=== PATIENT | male | born 1975 | race Caucasian/White ===

== ENCOUNTER 2020-08-01 06:50 | Inpatient (IN) | payer OTHER ==
[~2020-08-01] VITALS: Ht 182.9 cm; Wt 116.0 kg
[2020-08-01 07:27] LABS: COVID AG,FIA SOURCE NASAL SWAB
[2020-08-01 07:30] LABS: BASOPHILS % (AUTO) 0.4 % (0.0-2.0); EOSINOPHILS % (AUTO) 0.6 % (1.0-6.0); HEMATOCRIT 36.3 % (41-53); HEMOGLOBIN 11.5 g/dL (13.5-17.5); LYMPHOCYTES # (AUTO) 1.5 K/uL (1.0-4.8); LYMPHOCYTES % (AUTO) 21.3 % (22.0-44.0); MEAN CORPUSCULAR HEMOGLOBIN 23.9 pg (26.0-34.0); MEAN CORPUSCULAR HGB CONC 31.7 G/dL (31.0-37.0); MEAN CORPUSCULAR VOLUME 75 fL (80-100); MONOCYTES # (AUTO) 0.6 K/uL (0.1-1.0); NEUTROPHILS # (AUTO) 4.8 K/uL (1.8-7.7); NEUTROPHILS % (AUTO) 68.7 % (40.0-70.0); PLATELET COUNT (AUTO) 283 K/uL (150-450); RED BLOOD CELL COUNT(AUTO) 4.81 MIL/uL (4.50-5.90); RED CELL DISTRIBUTION WIDTH 19.4 % (11.5-14.5)
[2020-08-01 07:41] LABS: ANION GAP 6 mmol/L (8-16); CALCIUM, TOTAL 8.8 mg/dL (8.8-10.5); CARBON DIOXIDE 29 mmol/L (22-29); CHLORIDE 100 mmol/L (98-107); CREATININE 0.89 mg/dL (0.60-1.30); GLOMERULAR FILTR. RATE CALC > 60 mL/min (>60); GLUCOSE,RANDOM 110 mg/dL (70-110); POTASSIUM 3.7 mmol/L (3.5-5.1); SODIUM SERUM 135 mmol/L (136-145); UREA NITROGEN, BLOOD 8 mg/dL (7-18)
[2020-08-01] MEDS ORDERED: METH10SO PO (07:42)
[2020-08-01 07:46] LABS: SALICYLATE 2.3 mg/dL (2.8-20.0)
[2020-08-01 07:47] LABS: ACETAMINOPHEN < 2 mcg/mL (10-30); ALANINE AMINOTRANSFERASE 16 U/L (12-78); ALBUMIN 3.4 g/dL (3.4-5.0); ALKALINE PHOSPHATASE 78 U/L (46-116); ASPARTATE AMINOTRANSFERASE 18 U/L (15-37); BILIRUBIN,TOTAL 0.3 mg/dL (0.1-1.0); CREATINE KINASE, TOTAL ONLY 52 U/L (39-308); TOTAL PROTEIN, SERUM 8.5 g/dL (6.4-8.2)
[2020-08-01] MEDS ORDERED: LORazepam 2 MG/ML VIAL IVP ONE (09:15)
[2020-08-01] MEDS ORDERED: MAGNESIUM HYDROXIDE SUSPENSION 30 ML UDCUP PO PRN (10:00)
[2020-08-01] MEDS ORDERED: ACETAMINOPHEN 325 MG TABLET PO PRN (10:00)
[2020-08-01] MEDS ORDERED: SODIUM CHLORIDE 0.9% 1,000 ML IV ONE (10:00)
[2020-08-01] MEDS ORDERED: ONDANSETRON HCL 4 MG/2 ML VIAL IVP PRN ×2 (10:00)
[2020-08-01] MEDS ORDERED: 0.9% SODIUM CHLORIDE 10 ML SYRINGE IVP PRN (10:00)
[2020-08-01] MEDS: METHADONE HCL 10 MG TABLET PO SCH (10:16)
[2020-08-01 12:13] LABS: AMPHET/METH SCREEN,URINE POSITIVE (NEGATIVE); BARBITURATE SCREEN, URINE NEGATIVE (NEGATIVE); BENZODIAZEPINES SCREEN,URINE NEGATIVE (NEGATIVE); CANNABINOID SCREEN,URINE NEGATIVE (NEGATIVE); COCAINE SCREEN,URINE NEGATIVE (NEGATIVE); METHADONE SCREEN, URINE POSITIVE (NEGATIVE); OPIATE SCREEN,URINE NEGATIVE (NEGATIVE); PHENCYCLIDINE SCREEN,URINE NEGATIVE (NEGATIVE)
[2020-08-01 12:49] VITALS: BP 143/91
[2020-08-01] MEDS: NICOTINE 21 MG/24 HOUR PATCH TD SCH (14:20)
[2020-08-01 15:09] VITALS: BP 138/82
[2020-08-01 19:35] VITALS: BP 141/87
[2020-08-01] MEDS: ACETAMINOPHEN 325 MG TABLET PO PRN (20:06)
[2020-08-01 23:55] VITALS: BP 136/82
[2020-08-02] MEDS: LORazepam 2 MG/ML VIAL IVP PRN ×2 (00:48→17:17)
[2020-08-02 04:38] VITALS: BP 147/89
[2020-08-02 07:40] VITALS: BP 124/79
[2020-08-02] MEDS: FAMOTIDINE 20 MG TABLET PO SCH (07:53)
[2020-08-02] MEDS: MULTIVITAMINS WITH MINERALS, THERAPEUTIC TABLET PO SCH (07:53)
[2020-08-02] MEDS: NICOTINE 21 MG/24 HOUR PATCH TD SCH (07:54)
[2020-08-02] MEDS: METHADONE HCL 10 MG TABLET PO SCH (07:54)
[2020-08-02] MEDS: LevETIRAcetam 500 MG TABLET PO SCH ×2 (09:35→20:50)
[2020-08-02 11:10] VITALS: BP 145/93
[2020-08-02 13:39] VITALS: BP 128/72
[2020-08-02 20:18] VITALS: BP 123/75
[2020-08-03] MEDS: LORazepam 2 MG/ML VIAL IVP PRN ×4 (03:46→20:25)
[2020-08-03] MEDS: ACETAMINOPHEN 325 MG TABLET PO PRN (03:56)
[2020-08-03 05:17] VITALS: BP 141/99
[2020-08-03 07:32] VITALS: BP 140/83
[2020-08-03] MEDS: MULTIVITAMINS WITH MINERALS, THERAPEUTIC TABLET PO SCH (08:03)
[2020-08-03] MEDS: FAMOTIDINE 20 MG TABLET PO SCH (08:03)
[2020-08-03] MEDS: METHADONE HCL 10 MG TABLET PO SCH (08:03)
[2020-08-03] MEDS: LevETIRAcetam 500 MG TABLET PO SCH (08:03)
[2020-08-03] MEDS: NICOTINE 21 MG/24 HOUR PATCH TD SCH (08:04)
[2020-08-03 20:08] VITALS: BP 110/65
[2020-08-03] MEDS: LevETIRAcetam 250 MG TABLET PO SCH (20:22)
[2020-08-03 23:37] VITALS: BP 112/66
[2020-08-04 04:34] VITALS: BP 131/79
[2020-08-04] MEDS: LORazepam 2 MG/ML VIAL IVP PRN ×3 (06:03→20:40)
[2020-08-04 07:50] VITALS: BP 142/80
[2020-08-04] MEDS: FAMOTIDINE 20 MG TABLET PO SCH (08:41)
[2020-08-04] MEDS: METHADONE HCL 10 MG TABLET PO SCH (08:41)
[2020-08-04] MEDS: MULTIVITAMINS WITH MINERALS, THERAPEUTIC TABLET PO SCH (08:41)
[2020-08-04] MEDS: LevETIRAcetam 250 MG TABLET PO SCH ×2 (08:42→20:39)
[2020-08-04] MEDS: NICOTINE 21 MG/24 HOUR PATCH TD SCH (08:42)
[2020-08-04 10:59] VITALS: BP 138/82
[2020-08-04 15:09] VITALS: BP 112/84
[2020-08-04 19:48] VITALS: BP 105/68
[2020-08-05 04:29] VITALS: BP 99/67
[2020-08-05] MEDS: FAMOTIDINE 20 MG TABLET PO SCH (07:55)
[2020-08-05] MEDS: LevETIRAcetam 250 MG TABLET PO SCH ×2 (07:55→21:45)
[2020-08-05] MEDS: METHADONE HCL 10 MG TABLET PO SCH ×2 (07:55→09:04)
[2020-08-05] MEDS: MULTIVITAMINS WITH MINERALS, THERAPEUTIC TABLET PO SCH (07:55)
[2020-08-05] MEDS: NICOTINE 21 MG/24 HOUR PATCH TD SCH (07:56)
[2020-08-05 08:20] VITALS: BP 113/58
[2020-08-05] MEDS ORDERED: LORazepam 2 MG/ML VIAL IVP PRN (10:00)
[2020-08-05 19:00] VITALS: BP 117/64
[2020-08-05] MEDS ORDERED: LevETIRAcetam 500 MG in DEXTROSE 5%-WATER 100 ML IV ONE (19:30)
[2020-08-05] MEDS ORDERED: SODIUM CHLORIDE 0.9% 250 ML IV ONE (19:37)
[2020-08-05 20:08] VITALS: BP 105/63
[2020-08-05] MEDS: LORazepam 2 MG/ML VIAL IVP PRN (20:49)
[2020-08-05] MEDS: MELATONIN 3 MG TABLET PO PRN (21:46)
[2020-08-06] MEDS ORDERED: LORazepam 2 MG/ML VIAL IVP ONE (01:45)
[2020-08-06 04:55] VITALS: BP 98/75
[2020-08-06 07:36] VITALS: BP 127/70
[2020-08-06] MEDS: FAMOTIDINE 20 MG TABLET PO SCH (08:05)
[2020-08-06] MEDS: MULTIVITAMINS WITH MINERALS, THERAPEUTIC TABLET PO SCH (08:05)
[2020-08-06] MEDS: LevETIRAcetam 250 MG TABLET PO SCH (08:05)
[2020-08-06] MEDS: METHADONE HCL 10 MG TABLET PO SCH (08:05)
[2020-08-06] MEDS: NICOTINE 21 MG/24 HOUR PATCH TD SCH (08:06)
[2020-08-06] MEDS: LORazepam 2 MG/ML VIAL IVP PRN ×2 (14:09→21:09)
[2020-08-06 14:24] VITALS: BP 103/73
[2020-08-06] MEDS: LevETIRAcetam 500 MG TABLET PO SCH (20:05)
[2020-08-06] MEDS: MELATONIN 3 MG TABLET PO PRN (20:05)
[2020-08-06 20:46] VITALS: BP 99/72
[2020-08-07 00:35] VITALS: BP 86/54
[2020-08-07 05:31] VITALS: BP 84/60
[2020-08-07 08:00] VITALS: BP 107/56
[2020-08-07] MEDS: MULTIVITAMINS WITH MINERALS, THERAPEUTIC TABLET PO SCH (08:38)
[2020-08-07] MEDS: FAMOTIDINE 20 MG TABLET PO SCH (08:38)
[2020-08-07] MEDS: METHADONE HCL 10 MG TABLET PO SCH (08:38)
[2020-08-07] MEDS: LevETIRAcetam 500 MG TABLET PO SCH ×2 (08:38→19:42)
[2020-08-07] MEDS: NICOTINE 21 MG/24 HOUR PATCH TD SCH (08:39)
[2020-08-07] MEDS: LORazepam 2 MG/ML VIAL IVP PRN ×2 (12:37→19:42)
[2020-08-07 19:20] VITALS: BP 93/52
[2020-08-07] MEDS: GABAPENTIN 300 MG CAPSULE PO SCH (19:42)
[2020-08-07] MEDS: MELATONIN 3 MG TABLET PO PRN (21:23)
[2020-08-08] MEDS: LORazepam 2 MG/ML VIAL IVP PRN ×3 (01:17→20:27)
[2020-08-08 04:50] VITALS: BP 95/60
[2020-08-08 08:05] VITALS: BP 105/61
[2020-08-08] MEDS: FAMOTIDINE 20 MG TABLET PO SCH (08:41)
[2020-08-08] MEDS: LevETIRAcetam 500 MG TABLET PO SCH ×2 (08:41→20:21)
[2020-08-08] MEDS: NICOTINE 21 MG/24 HOUR PATCH TD SCH (08:41)
[2020-08-08] MEDS: MULTIVITAMINS WITH MINERALS, THERAPEUTIC TABLET PO SCH (08:41)
[2020-08-08] MEDS ORDERED: METHADONE HCL 10 MG TABLET PO ONE (09:00)
[2020-08-08] MEDS ORDERED: METHADONE HCL 10 MG TABLET PO SCH (09:00)
[2020-08-08 19:50] VITALS: BP 100/62
[2020-08-08] MEDS: GABAPENTIN 300 MG CAPSULE PO SCH (20:21)
[2020-08-08] MEDS: MELATONIN 3 MG TABLET PO PRN (21:28)
[2020-08-09 03:58] VITALS: BP 112/69
[2020-08-09] MEDS: NICOTINE 21 MG/24 HOUR PATCH TD SCH (08:13)
[2020-08-09] MEDS: LevETIRAcetam 500 MG TABLET PO SCH ×2 (08:14→20:27)
[2020-08-09] MEDS: FAMOTIDINE 20 MG TABLET PO SCH (08:14)
[2020-08-09] MEDS: MULTIVITAMINS WITH MINERALS, THERAPEUTIC TABLET PO SCH (08:14)
[2020-08-09 08:17] VITALS: BP 103/53
[2020-08-09] MEDS ORDERED: METHADONE HCL 10 MG TABLET PO ONE (09:00)
[2020-08-09 16:09] LABS: BASOPHILS % (AUTO) 0.9 % (0.0-2.0); LYMPHOCYTES # (AUTO) 2.1 K/uL (1.0-4.8); RED CELL DISTRIBUTION WIDTH 20.1 % (11.5-14.5)
[2020-08-09 16:12] LABS: HEMATOCRIT 41.9 % (41-53); HEMOGLOBIN 13.5 g/dL (13.5-17.5); MEAN CORPUSCULAR HEMOGLOBIN 24.3 pg (26.0-34.0); MEAN CORPUSCULAR HGB CONC 32.2 G/dL (31.0-37.0); MEAN CORPUSCULAR VOLUME 76 fL (80-100); MONOCYTES % (AUTO) 11.4 % (2.0-9.0); NEUTROPHILS # (AUTO) 5.8 K/uL (1.8-7.7); NEUTROPHILS % (AUTO) 63.7 % (40.0-70.0); RED BLOOD CELL COUNT(AUTO) 5.56 MIL/uL (4.50-5.90)
[2020-08-09] MEDS ORDERED: LORazepam 0.5 MG TABLET PO ONE (16:15)
[2020-08-09 16:21] LABS: ANION GAP 8 mmol/L (8-16); CALCIUM, TOTAL 9.6 mg/dL (8.8-10.5); CARBON DIOXIDE 25 mmol/L (22-29); CHLORIDE 101 mmol/L (98-107); CREATININE 1.05 mg/dL (0.60-1.30); GLOMERULAR FILTR. RATE CALC > 60 mL/min (>60); GLUCOSE,RANDOM 94 mg/dL (70-110); POTASSIUM 4.4 mmol/L (3.5-5.1); SODIUM SERUM 134 mmol/L (136-145); UREA NITROGEN, BLOOD 10 mg/dL (7-18)
[2020-08-09 16:26] LABS: ALANINE AMINOTRANSFERASE 16 U/L (12-78); ALBUMIN 3.8 g/dL (3.4-5.0); ALKALINE PHOSPHATASE 85 U/L (46-116); ASPARTATE AMINOTRANSFERASE 22 U/L (15-37); BILIRUBIN,TOTAL 0.3 mg/dL (0.1-1.0); TOTAL PROTEIN, SERUM 8.8 g/dL (6.4-8.2)
[2020-08-09] MEDS: CloNIDine HCL 0.1 MG TABLET PO SCH ×2 (16:44→20:26)
[2020-08-09 16:55] LABS: PLATELET COUNT (AUTO) 242 K/uL (150-450)
[2020-08-09 20:00] VITALS: BP 103/78
[2020-08-09] MEDS: GABAPENTIN 300 MG CAPSULE PO SCH (20:26)
[2020-08-09] MEDS: MELATONIN 3 MG TABLET PO PRN (20:44)
[2020-08-10 05:00] VITALS: BP 109/66
[2020-08-10] MEDS: CloNIDine HCL 0.1 MG TABLET PO SCH ×4 (05:50→20:35)
[2020-08-10 08:07] VITALS: BP 115/64
[2020-08-10] MEDS: FAMOTIDINE 20 MG TABLET PO SCH (09:20)
[2020-08-10] MEDS: LevETIRAcetam 500 MG TABLET PO SCH ×2 (09:20→20:35)
[2020-08-10] MEDS: MULTIVITAMINS WITH MINERALS, THERAPEUTIC TABLET PO SCH (09:20)
[2020-08-10] MEDS: NICOTINE 21 MG/24 HOUR PATCH TD SCH (09:21)
[2020-08-10] MEDS ORDERED: HydrOXYzine HCL 50 MG TABLET PO PRN (15:00)
[2020-08-10] MEDS: HEPARIN SODIUM,PORCINE 5,000 UNITS/ML VIAL SQ SCH ×2 (16:52→20:35)
[2020-08-10] MEDS ORDERED: METHADONE HCL 10 MG TABLET PO ONE (18:15)
[2020-08-10 19:25] VITALS: BP 108/59
[2020-08-10] MEDS: GABAPENTIN 300 MG CAPSULE PO SCH (20:35)
[2020-08-10] MEDS: MELATONIN 3 MG TABLET PO PRN (20:35)
[2020-08-11 04:00] VITALS: BP 110/69
[2020-08-11] MEDS: CloNIDine HCL 0.1 MG TABLET PO SCH ×2 (06:05→11:55)
[2020-08-11 08:00] VITALS: BP 108/59
[2020-08-11] MEDS: LevETIRAcetam 500 MG TABLET PO SCH (08:27)
[2020-08-11] MEDS: HEPARIN SODIUM,PORCINE 5,000 UNITS/ML VIAL SQ SCH (08:27)
[2020-08-11] MEDS: NICOTINE 21 MG/24 HOUR PATCH TD SCH (08:27)
[2020-08-11] MEDS: FAMOTIDINE 20 MG TABLET PO SCH (08:27)
[2020-08-11] MEDS: MULTIVITAMINS WITH MINERALS, THERAPEUTIC TABLET PO SCH (08:27)
[2020-08-11 11:52] VITALS: BP 99/64
[2020-08-11] MEDS ORDERED: CLON0.1T2 PO ×2 (12:06→12:20)
[2020-08-11] MEDS ORDERED: GABA-1181 PO (12:15)
[2020-08-11] MEDS ORDERED: LEVE500T8 PO (12:19)
[2020-08-11] MEDS ORDERED: MULT-1239 PO (12:22)
== END 2020-08-11 13:15 | DRG 101 ==
LOC: EMS 06:54 → 5S 10:33 → 6S 08-02 13:15
PROVIDERS: ADMIT Internal Medicine; ATTEND Internal Medicine
PROC: 4A10X4Z Monitoring of Central Nervous Electrical Activity, External Approach (ICD-10-PCS; principal; 2020-08-03)
DX: G40.909 Epilepsy, unspecified, not intractable, without status epilepticus (principal); F19.239 Other psychoactive substance dependence with withdrawal, unspecified; G25.81 Restless legs syndrome; D64.9 Anemia, unspecified; E66.9 Obesity, unspecified; F17.210 Nicotine dependence, cigarettes, uncomplicated; F11.90 Opioid use, unspecified, uncomplicated; I87.2 Venous insufficiency (chronic) (peripheral); Z20.822 Contact with and (suspected) exposure to COVID-19; Z88.1 Allergy status to other antibiotic agents; Z79.899 Other long term (current) drug therapy; Z71.51 Drug abuse counseling and surveillance of drug abuser; Z68.34 Body mass index [BMI] 34.0-34.9, adult
CPT/HCPCS: 70450; 70551; 71045; 80053; 82550; 84484; 85025; 93005; 95816; 99285; G0480; G0481; J0712; J1644; J2060; J2405; J7030; J7050; J7060; 36415-L1; 36415-TC

== ENCOUNTER 2020-09-09 09:37 | Inpatient (IN) | payer OTHER ==
[~2020-09-09] VITALS: Ht 185.4 cm; Wt 129.0 kg
[~2020-09-09 09:37] MED LIST: CLON0.1T2 PO; GABA-1181 PO; LEVE500T8 PO; MULT-1239 PO
[2020-09-09] MEDS ORDERED: ONDANSETRON HCL 4 MG/2 ML VIAL IVP ONE (11:00)
[2020-09-09] MEDS ORDERED: ASPIRIN 325 MG TABLET PO ONE (11:00)
[2020-09-09] MEDS ORDERED: SODIUM CHLORIDE 0.9% 1,000 ML IV ONE (11:00)
[2020-09-09] MEDS ORDERED: KETOROLAC TROMETHAMINE 30 MG/ML VIAL IVP ONE (11:00)
[2020-09-09] MEDS ORDERED: MAGNESIUM HYDROXIDE SUSPENSION 30 ML UDCUP PO PRN (11:00)
[2020-09-09 11:26] LABS: COVID AG,FIA SOURCE NASOPHARYNGEAL
[2020-09-09 11:30] LABS: BASOPHILS % (AUTO) 0.5 % (0.0-2.0); EOSINOPHILS % (AUTO) 0.1 % (1.0-6.0); HEMATOCRIT 38.5 % (41-53); HEMOGLOBIN 12.3 g/dL (13.5-17.5); LYMPHOCYTES # (AUTO) 1.5 K/uL (1.0-4.8); LYMPHOCYTES % (AUTO) 15.4 % (22.0-44.0); MEAN CORPUSCULAR HEMOGLOBIN 24.8 pg (26.0-34.0); MEAN CORPUSCULAR HGB CONC 32.1 G/dL (31.0-37.0); MEAN CORPUSCULAR VOLUME 78 fL (80-100); MONOCYTES # (AUTO) 0.8 K/uL (0.1-1.0); MONOCYTES % (AUTO) 8.9 % (2.0-9.0); NEUTROPHILS # (AUTO) 7.2 K/uL (1.8-7.7); NEUTROPHILS % (AUTO) 75.1 % (40.0-70.0); PLATELET COUNT (AUTO) 257 K/uL (150-450); RED BLOOD CELL COUNT(AUTO) 4.97 MIL/uL (4.50-5.90); RED CELL DISTRIBUTION WIDTH 18.6 % (11.5-14.5)
[2020-09-09 11:44] LABS: D-DIMER 0.41 mg/L FEU (0.00-0.50); INR 1.1 (0.9-1.1); PROTHROMBIN TIME 11.3 SEC (9.4-11.6)
[2020-09-09 11:45] LABS: ANION GAP 9 mmol/L (8-16); CARBON DIOXIDE 26 mmol/L (22-29); CHLORIDE 105 mmol/L (98-107); CREATININE 0.93 mg/dL (0.60-1.30); GLOMERULAR FILTR. RATE CALC > 60 mL/min (>60); GLUCOSE,RANDOM 112 mg/dL (70-110); POTASSIUM 3.4 mmol/L (3.5-5.1); SODIUM SERUM 140 mmol/L (136-145); UREA NITROGEN, BLOOD 11 mg/dL (7-18)
[2020-09-09 11:48] LABS: ALANINE AMINOTRANSFERASE 16 U/L (12-78); ALBUMIN 3.4 g/dL (3.4-5.0); ALKALINE PHOSPHATASE 79 U/L (46-116); ASPARTATE AMINOTRANSFERASE 14 U/L (15-37); BILIRUBIN,TOTAL 0.4 mg/dL (0.1-1.0); CREATINE KINASE, TOTAL ONLY 55 U/L (39-308); LIPASE 167 U/L (73-393)
[2020-09-09 11:50] LABS: LACTIC ACID 1.2 mmol/L (0.4-2.0)
[2020-09-09 11:57] LABS: B-TYPE NATRIURETIC PEPTIDE 8 pg/mL (0-100)
[2020-09-09] MEDS ORDERED: ZOLPIDEM TARTRATE 5 MG TABLET PO PRN (12:30)
[2020-09-09] MEDS: ACETAMINOPHEN 325 MG TABLET PO PRN (17:45)
[2020-09-09 21:30] VITALS: BP 129/87
[2020-09-09] MEDS: LevETIRAcetam 500 MG TABLET PO SCH (21:49)
[2020-09-10 00:12] VITALS: BP 131/71
[2020-09-10 03:40] VITALS: BP 130/76
[2020-09-10] MEDS: ACETAMINOPHEN 325 MG TABLET PO PRN (04:37)
[2020-09-10 07:47] VITALS: BP 125/73
[2020-09-10] MEDS: LevETIRAcetam 500 MG TABLET PO SCH (08:18)
[2020-09-10] MEDS ORDERED: FAMOTIDINE 20 MG TABLET PO SCH (09:00)
[2020-09-10] MEDS ORDERED: ASPIRIN 81 MG CHEWABLE TABLET PO SCH (09:00)
[2020-09-10 11:04] VITALS: BP 131/75
[2020-09-10] MEDS ORDERED: ASPI-1450 PO (11:07)
[2020-09-10] MEDS ORDERED: ACET-2247 PO (11:08)
[2020-09-10] MEDS ORDERED: MOM30 PO (11:08)
[2020-09-10] MEDS ORDERED: FAMO20 PO (11:08)
== END 2020-09-10 14:35 | DRG 313 ==
LOC: EMS 09:46 → 5S 19:02
PROVIDERS: ADMIT Internal Medicine; ATTEND Internal Medicine
DX: R07.89 Other chest pain (principal); G40.909 Epilepsy, unspecified, not intractable, without status epilepticus; E66.9 Obesity, unspecified; E87.6 Hypokalemia; F41.1 Generalized anxiety disorder; Z20.822 Contact with and (suspected) exposure to COVID-19; G25.81 Restless legs syndrome; Z87.891 Personal history of nicotine dependence; Z68.37 Body mass index [BMI] 37.0-37.9, adult; Z88.1 Allergy status to other antibiotic agents; Z91.013 Allergy to seafood
CPT/HCPCS: 71045; 80053; 82550; 83605; 83690; 83735; 83880; 84484; 85025; 85379; 85610; 85730; 87040; 93005; 93306; 99285; G0480; J1885; J2405; J7030; 36415-L1; 36415-TC